=== PATIENT | male | born 1990 | race African-American/Black ===

== ENCOUNTER 2018-04-08 19:31 | Inpatient (IN) | payer OTHER ==
[2018-04-08] MEDS ORDERED: LORazepam 1 MG TAB PO STA (19:53)
--- NOTE | 2018-04-08 19:55 | ED ---
General Adult HPI - General Stated complaint: Mental Health Time Seen by Provider: 04/08/18 19:32 - Related Data Previous Rx's Medication Instructions Recorded risperiDONE [RisperDAL] 2 mg PO BID #60 tab 04/15/18 Allergies Allergy/AdvReac Type Severity Reaction Status Date / Time No Known Allergies Allergy Verified 04/09/18 15:13 Review of Systems ROS Statement: Those systems with pertinent positive or pertinent negative responses have been documented in the HPI. ROS Other: All systems not noted in ROS Statement are negative. Past Medical History Past Medical History: No Reported History History of Any Multi-Drug Resistant Organisms: None Reported Past Surgical History: No Surgical Hx Reported Past Psychological History: No Psychological Hx Reported Smoking Status: Never smoker Past Alcohol Use History: Occasional Past Drug Use History: None Reported - Past Family History Mother Additional Family Medical History / Comment(s): Mental Illness Father History Unknown: Yes Course Vital Signs 04/08/18 04/09/18 19:52 14:16 Temperature 98.1 F 98.1 F Pulse Rate 65 71 Respiratory 20 18 Rate Blood Pressure 98/46 135/73 O2 Sat by Pulse 97 98 Oximetry Medical Decision Making - Medical Decision Making Dictation was produced using [employer] dictation software. please excuse any grammatical, word or spelling errors. Chief Complaint: 27-year-old male past medical history of schizoaffective disorder presents with acute psychosis. History of Present Illness: This 19-year-old male presents with auditory and visual hallucinations. He states he is hearing voices telling him to end it all. Patient was also told his voices are telling him to kill himself. Patient has history of schizoaffective disorder. He takes olanzapine. Patient is a poor historian. He is brought by his sister worsened patient has been having acute psychotic episodes. The ROS documented in this emergency department record has been reviewed and confirmed by me. Those systems with pertinent positive or negative responses have been documented in the HPI. All other systems are other negative and/or noncontributory. PHYSICAL EXAM: General Impression: acute distress HEENT: Normocephalic atraumatic, extra-ocular movements intact, pupils equal and reactive to light bilaterally, mucous membranes moist. Cardiovascular: Heart regular rate and rhythm, S1&S2 audible, no murmurs, rubs or gallops Chest: Lungs clear to auscultation bilaterally, no rhonchi, no wheeze, no rales Abdomen: Bowel sounds present, abdomen soft, non-tender, non-distended, no organomegaly Musculoskeletal: Pulses present and equal in all extremities, no peripheral edema Motor: Power 5/5 bilaterally, no focal deficits noted Neurological: CN II-XII grossly intact, no focal motor or sensory deficits noted Skin: Intact with no visualized rashes Psych: Tearful, acutely psychotic, and cooperative, tangential speech ED course: 27 yo male presents with acute auditory hallucinations. Vital signs upon arrival are within normal limits. On physical exam patient showing signs of acute psychosis. Patient care is signed out to oncoming physician for follow -up of EPS with recommendations. - Lab Data Result diagrams: 04/08/18 20:17 04/08/18 20:17 Lab Results 04/08/18 04/08/18 04/08/18 Range/Units 20:17 20:17 20:17 WBC 6.3 (3.8-10.6) k/uL RBC 5.47 (4.30-5.90) m/uL Hgb 15.9 (13.0-17.5) gm/dL Hct 47.6 (39.0-53.0) % MCV 87.0 (80.0-100.0) fL MCH 29.1 (25.0-35.0) pg MCHC 33.4 (31.0-37.0) g/dL RDW 13.5 (11.5-15.5) % Plt Count 320 (150-450) k/uL Neutrophils % 63 % Lymphocytes % 28 % Monocytes % 6 % Eosinophils % 1 % Basophils % 0 % Neutrophils # 4.0 (1.3-7.7) k/uL Lymphocytes # 1.7 (1.0-4.8) k/uL Monocytes # 0.3 (0-1.0) k/uL Eosinophils # 0.1 (0-0.7) k/uL Basophils # 0.0 (0-0.2) k/uL Sodium 138 (137-145) mmol/L Potassium 3.9 (3.5-5.1) mmol/L Chloride 105 (98-107) mmol/L Carbon Dioxide 24 (22-30) mmol/L Anion Gap 9 mmol/L BUN 11 (9-20) mg/dL Creatinine 0.99 (0.66-1.25) mg/dL Est GFR (CKD-EPI)AfAm >90 (>60 ml/min/1.73 sqM) Est GFR (CKD-EPI)NonAf >90 (>60 ml/min/1.73 sqM) Glucose 94 (74-99) mg/dL Estimated Ave Glu mg/dL Hemoglobin A1c (4.0-6.0) % Calcium 10.0 (8.4-10.2) mg/dL Triglycerides (<150) mg/dL Cholesterol (<200) mg/dL LDL Cholesterol, Calc (0-99) mg/dL HDL Cholesterol (40-60) mg/dL TSH (0.465-4.680) mIU/L Urine Opiates Screen Not Detected (NotDetected) Ur Oxycodone Screen Not Detected (NotDetected) Urine Methadone Screen Not Detected (NotDetected) Ur Propoxyphene Screen Not Detected (NotDetected) Ur Barbiturates Screen Not Detected (NotDetected) U Tricyclic Antidepress Not Detected (NotDetected) Ur Phencyclidine Scrn Not Detected (NotDetected) Ur Amphetamines Screen Not Detected (NotDetected) U Methamphetamines Scrn Not Detected (NotDetected) U Benzodiazepines Scrn Not Detected (NotDetected) Urine Cocaine Screen Not Detected (NotDetected) U Marijuana (THC) Screen Detected H (NotDetected) Serum Alcohol <10 mg/dL 04/08/18 04/08/18 Range/Units 20:17 20:17 WBC (3.8-10.6) k/uL RBC (4.30-5.90) m/uL Hgb (13.0-17.5) gm/dL Hct (39.0-53.0) % MCV (80.0-100.0) fL MCH (25.0-35.0) pg MCHC (31.0-37.0) g/dL RDW (11.5-15.5) % Plt Count (150-450) k/uL Neutrophils % % Lymphocytes % % Monocytes % % Eosinophils % % Basophils % % Neutrophils # (1.3-7.7) k/uL Lymphocytes # (1.0-4.8) k/uL Monocytes # (0-1.0) k/uL Eosinophils # (0-0.7) k/uL Basophils # (0-0.2) k/uL Sodium (137-145) mmol/L Potassium (3.5-5.1) mmol/L Chloride (98-107) mmol/L Carbon Dioxide (22-30) mmol/L Anion Gap mmol/L BUN (9-20) mg/dL Creatinine (0.66-1.25) mg/dL Est GFR (CKD-EPI)AfAm (>60 ml/min/1.73 sqM) Est GFR (CKD-EPI)NonAf (>60 ml/min/1.73 sqM) Glucose (74-99) mg/dL Estimated Ave Glu mg/dL 108 Hemoglobin A1c 5.4 (4.0-6.0) % Calcium (8.4-10.2) mg/dL Triglycerides 106 (<150) mg/dL Cholesterol 194 (<200) mg/dL LDL Cholesterol, Calc 89 (0-99) mg/dL HDL Cholesterol 84 H (40-60) mg/dL TSH 1.950 (0.465-4.680) mIU/L Urine Opiates Screen (NotDetected) Ur Oxycodone Screen (NotDetected) Urine Methadone Screen (NotDetected) Ur Propoxyphene Screen (NotDetected) Ur Barbiturates Screen (NotDetected) U Tricyclic Antidepress (NotDetected) Ur Phencyclidine Scrn (NotDetected) Ur Amphetamines Screen (NotDetected) U Methamphetamines Scrn (NotDetected) U Benzodiazepines Scrn (NotDetected) Urine Cocaine Screen (NotDetected) U Marijuana (THC) Screen (NotDetected) Serum Alcohol mg/dL Disposition Clinical Impression: Psychosis Disposition: ADMITTED IP TO [facility] Condition: Stable Time of Disposition: 15:51 Decision Time: 15:51
[2018-04-08 20:34] LABS: Basophils % (A) 0 %; Eosinophils # (A) 0.1 k/uL (0-0.7); Eosinophils % (A) 1 %; HCT 47.6 % (39.0-53.0); HGB 15.9 gm/dL (13.0-17.5); Lymphocytes # (A) 1.7 k/uL (1.0-4.8); Lymphocytes % (A) 28 %; MCH 29.1 pg (25.0-35.0); MCHC 33.4 g/dL (31.0-37.0); Mean Platelet Volume 6.4; Monocytes # (A) 0.3 k/uL (0-1.0); Monocytes % (A) 6 %; Neutrophils % (A) 63 %; Platelet Count 320 k/uL (150-450); RBC 5.47 m/uL (4.30-5.90); RDW 13.5 % (11.5-15.5); WBC 6.3 k/uL (3.8-10.6)
[2018-04-08 20:44] LABS: Amphetamine Screen,Urine Not Detected (NotDetected); Barbiturate Screen,Urine Not Detected (NotDetected); Benzodiazepines Screen,Urine Not Detected (NotDetected); Cocaine Screen,Urine Not Detected (NotDetected); Methadone Screen, Urine Not Detected (NotDetected); Opiate Screen,Urine Not Detected (NotDetected); Oxycodone Screen, Urine Not Detected (NotDetected); Phencyclidine Screen,Urine Not Detected (NotDetected); Tricyclic Antidepressant,Urine Not Detected (NotDetected); Urn Cannabinoid Scrn Detected (NotDetected)
[2018-04-08 20:50] LABS: Potassium 3.9 mmol/L (3.5-5.1)
[2018-04-08 20:53] LABS: Alcohol <10 mg/dL; Anion Gap 9 mmol/L; Blood Urea Nitrogen 11 mg/dL (9-20); Carbon Dioxide 24 mmol/L (22-30); Chloride 105 mmol/L (98-107); Glucose 94 mg/dL (74-99); Sodium 138 mmol/L (137-145)
[2018-04-08] MEDS ORDERED: OLANZAPINE PO SCH (21:45)
[2018-04-08] MEDS ORDERED: OLANZapine 10 MG TAB PO STA (22:02)
[2018-04-09] MEDS ORDERED: MAGNESIUM HYDROXIDE 2,400 MG/10 ML CUP PO PRN (14:43)
[2018-04-09] MEDS ORDERED: LORazepam 1 MG TAB PO PRN (14:43)
[2018-04-09] MEDS ORDERED: ACETAMINOPHEN TAB 325 MG TAB PO PRN (14:43)
[2018-04-09] MEDS ORDERED: ZIPRASIDONE 20 MG VIAL IM PRN (14:43)
[2018-04-09] MEDS ORDERED: MAG HYDROX/AL HYDROX/SIMETH 30 ML CUP PO PRN (14:43)
[2018-04-09] MEDS ORDERED: LORazepam 2 MG/ML INJ IM PRN (15:01)
--- NOTE | 2018-04-09 17:32 | P.CONS ---
History of Present Illness - Reason for Consult Consult date: 04/09/18 - History of Present Illness Patient is a 27-year-old male with a past medical history of schizophrenia who presented to the ED for psychosis and was subsequently admitted to the mental health unit. The patient notes that he has been hearing voices all of his life but that recently he stopped taking his medications and that the voices came back. The patient also voices were telling him to harm himself. He otherwise denied having any medical conditions or any active complaints at this time. He denied chest pain, shortness of breath, cough, fever, or chills. He also denied abdominal pain, nausea, vomiting, dysuria, headaches, or dizziness. Review of Systems Pertinent positives and negatives as discussed in HPI, a complete review of systems was performed and all other systems are negative. Past Medical History Past Medical History: No Reported History History of Any Multi-Drug Resistant Organisms: None Reported Past Surgical History: No Surgical Hx Reported Past Anesthesia/Blood Transfusion Reactions: No Reported Reaction Past Psychological History: ADD/ADHD, Schizoaffective Disorder Additional Psychological History / Comment(s): dx'd last year with schizoaffective. Smoking Status: Never smoker Past Alcohol Use History: Occasional Past Drug Use History: None Reported - Past Family History Mother Additional Family Medical History / Comment(s): Mental Illness Father History Unknown: Yes Medications and Allergies Home Medications Medication Instructions Recorded Confirmed Type Olanzapine(Unknown Dose) 10 mg PO HS 04/08/18 04/09/18 History Allergies Allergy/AdvReac Type Severity Reaction Status Date / Time No Known Allergies Allergy Verified 04/09/18 15:13 Physical Exam Vitals: Vital Signs Temp Pulse Pulse Resp BP BP Pulse Ox 04/09/18 14:51 97.6 F 58 L 20 126/81 04/09/18 14:16 98.1 F 71 18 135/73 98 04/08/18 19:52 98.1 F 65 20 98/46 97 General: [non toxic], [no distress], [appears at stated age], [normal weight] Derm: [no unusual rashes/lesions] [no unusual ecchymoses], [warm], [dry] Head: [atraumatic], [normocephalic], [symmetric] Eyes: [EOMI], [no lid lag], [anicteric sclera], [pupils equal round reactive to light] ENT: [Nose and ears atraumatic], [no thrush], [no pharyngeal erythema] Neck: [No thyromegaly], [no cervical lymphadenopathy], [trachea midline], [ supple] Mouth: [no lip lesion], [mucus membranes moist] Cardiovascular: [S1S2 reg], [no murmur], [positive posterior tibial pulse bilateral], [no edema], [capillary refill less than 2 seconds] Lungs: [CTA bilateral], [no rhonchi, no rales] , [no accessory muscle use] Abdominal: [soft], [ nontender to palpation], [no guarding], [no appreciable organomegaly], [normal bowel sounds] Ext: [no gross muscle atrophy], [muscle strength 5 out of 5 in all 4 extremities grossly], [no contractures], Neuro: [ CN II-XI grossly intact], [light touch intact all 4 extremities], [ finger to nose within normal limits], Psych: [Alert], [oriented], [appropriate affect] Results CBC & Chem 7: 04/08/18 20:17 04/08/18 20:17 Labs: Abnormal Lab Results - Last 24 Hours (Table) 04/08/18 Range/Units 20:17 U Marijuana (THC) Screen Detected H (NotDetected) Assessment and Plan Plan: Marijuana abuse -Patient counseled on the importance of cessation -Patient denies any tobacco abuse -Patient also denied any additional IV drug use Psychosis -As per psychiatry Thank you for allowing us to participate in the care of this patient. We will follow peripherally. Do not hesitate to contact us with questions. Someone can be reached from the [facility] hospitalist group at all hours of the day at [phone].
[2018-04-10 10:41] VITALS: BMI 31.3
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
[2018-04-10] MEDS: risperiDONE 1 MG TAB PO SCH ×2 (12:57→20:27)
[2018-04-10 16:22] LABS: Hemoglobin A1C 5.4 % (4.0-6.0)
[2018-04-11] MEDS: risperiDONE 1 MG TAB PO SCH ×2 (08:22→21:35)
--- NOTE | 2018-04-11 08:57 | P.PN ---
Progress Note - Text Interval history: The patient is found in his room he follows me to an interview room. He states that he slept last night staff recorded he slept approximate 7 hours. Appetite stable. He intends on participating in groups today. He continues to experience troubling auditory hallucinations and visual hallucinations. He did speak with his mother and he was on Risperdal at age 15 and a very low dose. Neither of them recall an adverse reaction or side effects from the medication. He has several questions regarding his outpatient follow-up once discharged. Mental status exam: The patient is an -Niuean male appearing his stated age. He is dressed in the same clothing is yesterday. Hygiene is adequate. Eye contact is appropriate. He is pleasant and cooperative. He appears restless as he seated in the chair he states that's due to anxiety. He is currently experiencing auditory hallucinations telling him he is going to . He is reporting no suicidal or homicidal thoughts of his own. He is reminded that he is safe here in the hospital and he can speak with staff regarding any concerns. He demonstrates no verbal or physical aggressiveness. Plan: The patient is just been started on Risperdal we will titrate it as needed during the course of the hospitalization. He is encouraged to participate in the milieu. We will monitor him for safety. Vital signs reviewed. Lab work reviewed.
[2018-04-12] MEDS: risperiDONE 1 MG TAB PO SCH ×2 (08:18→20:20)
--- NOTE | 2018-04-12 09:10 | P.PN ---
Progress Note - Text Interval history: The patient is found in the hallway he follows me to an interview room. He indicates that the voices are somewhat quieter. He had some difficulty with him last evening but feels her better during the day so far today. He does continue to hear them making derogatory comments. He reports no visual hallucinations. He feels his anxiety is reduced with the reduction in the intensity of the auditory hallucinations. At length he describes his concern over possibly losing his girlfriend who resides in [place]. He had several questions about how to reside in [place] but still get his mental health care. Mental status exam: The patient is alert he is dressed in his own clothing hygiene grooming adequate. Speech is fluent spontaneous nonpressured. He indicates his mood is improved. He describes continued auditory hallucinations that are derogatory but not commanding today. No visual hallucinations. He reports feeling safe here in the hospital. He does not appear hypomanic or manic. As the session goes on he does appear to be more anxious. He demonstrates no involuntary repetitive movements. He demonstrates no verbal or physical aggressiveness. He is able to demonstrate an appropriate range of affect. He is pleasant and cooperative throughout the interaction. Plan: We will continue Risperdal is written we will consider titrating the dose further if needed. We will monitor him for safety and encourage continued participation in the milieu.
[2018-04-13] MEDS: risperiDONE 1 MG TAB PO SCH (08:58)
--- NOTE | 2018-04-13 12:47 | P.PN ---
Progress Note - Text Interval history: The patient is found in the hallway he follows me to an interview room. He indicates the voices are quieter they seem to be just as frequent however. He continues to feel that they are somewhat worse in the evening hours. They continue to be worse when he is alone. Sleep spent stable appetite stable. He continues to have concern that his girlfriend going to leave him. 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 We again reviewed the medication his questions were answered. Mental status exam: The patient is an alert -Cam[place] male appearing his stated age. He is dressed in his own clothing hygiene grooming are good. Eye contact is good speech is fluent. He is pleasant and cooperative during the duration of our interaction. He reports feeling safe here in the hospital he indicates having or auditory auditory hallucinations that are somewhat quieter since he's been here but still present at the same frequency. He reports no visual hallucinations here in the hospital. He is endorsing no specific delusions. Insight and judgment improving. Affect appropriately expressive. He demonstrates no verbal or physical aggressiveness he demonstrates no involuntary repetitive movements. Plan: The patient will continue on the Risperdal we will titrate the dose to 2 mg twice daily to further reduce his psychosis. We will continue monitoring him for safety he is encouraged to continue participating in the milieu.
[2018-04-13] MEDS: risperiDONE 2 MG TAB PO SCH (20:14)
[2018-04-14] MEDS: risperiDONE 2 MG TAB PO SCH ×2 (07:48→20:26)
--- NOTE | 2018-04-14 11:16 | P.PN ---
Progress Note - Text Interval history: The patient is found in the hallway he follows me to an interview room. He states that his mood is much improved. He feels that the Risperdal continues to attenuate his auditory hallucinations. He states he also had a very good visit with his biological mother over the weekend. His mother had lost all of her children due to her substance use and neglect. He had carried feelings of anger for years. He states he was able to verbalize to her that he forgives her and hopes that they can build a better relationship. He indicates that she was tearful and responsive. He asked several questions regarding his medication and his outpatient follow-up. He asked that I call his girlfriend to answer any question she had about his treatment. Mental status exam: The patient alert he is dressed in his own clothing hygiene grooming adequate. Eye contact is good speech is fluent spontaneous nonpressured. He indicates his mood is good affect is congruent. He reports that the hallucinations continue to get quieter they're noncommanding. He was able to sleep better last night as a result. He is reporting no suicidal or homicidal ideation intent or plan. He is reporting no visual hallucinations at this time. No specific delusions reported. He does not appear hypomanic or manic. He is oriented to person place and date. Plan: The patient's will continue on the Risperdal as ordered. He has demonstrated significant improvement so far. I will consider discharging him tomorrow if clinically appropriate. We will continue to encourage full participation in the milieu we will monitor him for safety.
[2018-04-15 06:29] VITALS: BP 98/56; PULSE 70; RESP 15; TEMP 97.7
[2018-04-15] MEDS: risperiDONE 2 MG TAB PO SCH (08:03)
--- NOTE | 2018-04-15 09:52 | P.DS ---
Providers Date of admission: 04/09/18 14:14 Expected date of discharge: 04/15/18 Attending physician: Doyle Sims Consults: 04/09/18 14:43 Consult Physician Routine Consulting Provider: Vanessa Boyd Consult Reason/Comments: H & P and medical care Do you want consulting provider notified?: Yes Primary care physician: Stated None - Discharge Diagnosis(es) (1) Schizoaffective disorder Current Visit: Yes Status: Acute Priority: High Hospital Course: Brief Summary of admission note: This patient is a 27-year-old -[place] male who was admitted to the mental health unit through the emergency room with acute suicidal ideation in the context of having acute symptoms of psychosis. The patient presented reporting auditory hallucinations that were derogatory in directing self-harm. He was experiencing a visual hallucination of the grim reaper that was causing him great fear. He had been off of psychotropic medication and has been using alcohol. For full details please refer to my psychiatric evaluation dated 04/10/2018. Summary of hospital course: The patient was admitted to the mental health unit voluntarily. We reviewed his presenting symptoms and treatment options. We had considered initiating [facility] but the patient is without insurance. Risperdal was started and titrated to 2 mg twice daily. The patient reported a progressive improvement of his symptoms during this hospitalization. He indicates that the volume frequency and nature of the hallucinations have improved. He is endorsing no command auditory hallucinations. He is reporting no thoughts of self-harm or harm to others. He has been appropriately attending groups and has been pleasant and cooperative throughout his stay. He is scheduled to participate in a support meeting involving his biological mother this morning prior to discharge. With his permission I did speak with his girlfriend who resides in [place]. Mental status exam: The patient is alert he is dressed in his own clothing eye contact is appropriate speech is fluent spontaneous nonpressured. He indicates his mood is good affect is euthymic. He denies having any suicidal or homicidal ideation intent or plan. He is reporting very quiet nonderogatory noncommanding auditory hallucinations. He is reporting no visual hallucinations. He is endorsing no specific delusions at this time. He demonstrates no verbal or physical aggressiveness he demonstrates no involuntary repetitive movements. Insight and judgment much improved. He is oriented to person place and date. He spontaneously describes future oriented thinking. Impressions 1. Schizoaffective disorder depressed type Plan: The patient will be discharged mental health unit today he will return residing with his adoptive family. [facility]. We discussed that it may be in his best interest [facility]. For now he will remain on Risperdal 2 mg twice daily. He is instructed to abstain from any use of alcohol marijuana or any illicit drugs. He is not interested in any inpatient chemical dependency treatment. We discussed the use of these substances can worsen his symptoms of psychosis and elevate his safety risk. He is instructed to return to the hospital with any acute safety concerns. Patient Condition at Discharge: Stable Plan - Discharge Summary Discharge Rx Participant: No New Discharge Prescriptions: New risperiDONE [RisperDAL] 2 mg PO BID #60 tab Discontinued Olanzapine(Unknown Dose) 10 mg PO HS Discharge Medication List risperiDONE [RisperDAL] 2 mg PO BID #60 tab 04/15/18 [Rx] Follow up Appointment(s)/Referral(s): [facility] [NON-STAFF] - 1 Week Activity/Diet/Wound Care/Special Instructions: Keep your follow up appointments as scheduled. Continue medications as prescribed. Contact your medical care doctor or out patient psychiatrist for medication refills when needed. No alcohol or street drugs. No access to guns or weapons. If symptoms return or get worse contact the crisis line at [phone] or go to nearest emergency room for evaluation.
== END 2018-04-15 11:55 | disposition home or self-care (01) | DRG 885 ==
LOC: EC 19:31 → 3MHU 04-09 14:14
PROVIDERS: ADMIT Psychiatry & Neurology Psychiatry; ATTEND Psychiatry & Neurology Psychiatry
DX: F25.1 Schizoaffective disorder, depressive type (principal); R45.851 Suicidal ideations; F41.9 Anxiety disorder, unspecified; F81.9 Developmental disorder of scholastic skills, unspecified; F90.9 Attention-deficit hyperactivity disorder, unspecified type; Z62.810 Personal history of physical and sexual abuse in childhood; F10.10 Alcohol abuse, uncomplicated; Z71.51 Drug abuse counseling and surveillance of drug abuser; F12.10 Cannabis abuse, uncomplicated; Z79.899 Other long term (current) drug therapy
CPT/HCPCS: 36415; 80048; 80061; 80306; 80320; 82075; 83036; 84443; 85025; 99285

== ENCOUNTER 2018-08-01 14:45 | Inpatient (IN) | payer MEDICAID, OTHER ==
--- NOTE | 2018-08-01 15:11 | ED ---
General Adult HPI - General Chief complaint: Psychiatric Symptoms Stated complaint: Petition Time Seen by Provider: 08/01/18 14:52 Source: patient, police Mode of arrival: ambulatory Limitations: no limitations - History of Present Illness Initial comments: Dictation was produced using [employer] dictation software. please excuse any gramm atical, word or spelling errors. Chief Complaint: 28-year-old male with past medical history of schizophrenia presents by law enforcement for hallucinations. History of Present Illness: Patient is a 28-year-old male. He has past medical history of schizophrenia. Patient was last seen here in emergency department on September 06. He was evaluated by myself. At that time he presented with his family member for auditory and visual hallucinations. He was admitted to the hospital at that time. He presents today with law enforcement. Law enforcement reports that he was arrested yesterday. Patient was having symptoms of acute psychosis per law enforcement. He allegedly takes medications and has not been taking them. Patient uncooperative and unwilling to provide history of present illness Unable to obtain ROS secondary to mental status. PHYSICAL EXAM: General Impression: not in acute distress HEENT: Normocephalic atraumatic, extra-ocular movements intact, pupils equal and reactive to light bilaterally, mucous membranes moist. Cardiovascular: Heart regular rate and rhythm, S1&S2 audible, no murmurs, rubs or gallops Chest: Lungs clear to auscultation bilaterally, no rhonchi, no wheeze, no rales Abdomen: Bowel sounds present, abdomen soft, non-tender, non-distended, no organomegaly Musculoskeletal: Pulses present and equal in all extremities, no peripheral edema Motor: no focal deficits noted Neurological: CN II-XII grossly intact, no focal motor or sensory deficits noted Skin: Intact with no visualized rashes Psych: Flat affect ED course: 28-year-old male presents with clinical presentation consistent with acute psychosis. He has a past medical history of schizophrenia. Cranial enforcement he is noncompliant with his psychiatric medications. Signs upon arrival are within acceptable limits. Patient displaying active signs of acute psychosis at this time.Laboratory evaluation obtained. CBC C unremarkable. Sodium 151, potassium 5.3 serum alcohol negative. Pending urine drug screen. Point patient mildly dehydrated. Patient given intravenous fluids. After fluids patient can be dispositioned to inpatient psychiatry previous recommendations. - Related Data Home Medications Medication Instructions Recorded Confirmed Benztropine Mesylate [Cogentin] 1 mg PO BID PRN 08/01/18 08/01/18 Cholecalciferol (Vitamin D3) 5,000 unit PO DAILY 08/01/18 08/01/18 [Vitamin D3] risperiDONE [RisperDAL] 4 mg PO HS 08/01/18 08/01/18 Allergies Allergy/AdvReac Type Severity Reaction Status Date / Time No Known Allergies Allergy Verified 08/01/18 15:59 Review of Systems ROS Statement: Those systems with pertinent positive or pertinent negative responses have been documented in the HPI. ROS Other: All systems not noted in ROS Statement are negative. Past Medical History Past Medical History: No Reported History History of Any Multi-Drug Resistant Organisms: None Reported Past Surgical History: No Surgical Hx Reported Past Anesthesia/Blood Transfusion Reactions: No Reported Reaction Past Psychological History: No Psychological Hx Reported Smoking Status: Never smoker Past Alcohol Use History: Occasional Past Drug Use History: None Reported - Past Family History Mother Additional Family Medical History / Comment(s): Mental Illness Father History Unknown: Yes General Exam Limitations: no limitations Course Vital Signs 08/01/18 14:47 Pulse Rate 79 Respiratory 18 Rate Blood Pressure 140/74 Medical Decision Making - Lab Data Result diagrams: 08/01/18 15:40 08/01/18 15:40 Lab Results 08/01/18 08/01/18 Range/Units 15:40 15:40 WBC 10.0 (3.8-10.6) k/uL RBC 5.51 (4.30-5.90) m/uL Hgb 15.4 (13.0-17.5) gm/dL Hct 48.9 (39.0-53.0) % MCV 88.9 (80.0-100.0) fL MCH 28.0 (25.0-35.0) pg MCHC 31.5 (31.0-37.0) g/dL RDW 14.2 (11.5-15.5) % Plt Count 268 (150-450) k/uL Neutrophils % 71 % Lymphocytes % 21 % Monocytes % 6 % Eosinophils % 0 % Basophils % 0 % Neutrophils # 7.1 (1.3-7.7) k/uL Lymphocytes # 2.1 (1.0-4.8) k/uL Monocytes # 0.6 (0-1.0) k/uL Eosinophils # 0.0 (0-0.7) k/uL Basophils # 0.0 (0-0.2) k/uL Sodium 151 H (137-145) mmol/L Potassium 5.3 H (3.5-5.1) mmol/L Chloride 111 H (98-107) mmol/L Carbon Dioxide 26 (22-30) mmol/L Anion Gap 14 mmol/L BUN 11 (9-20) mg/dL Creatinine 1.17 (0.66-1.25) mg/dL Est GFR (CKD-EPI)AfAm >90 (>60 ml/min/1.73 sqM) Est GFR (CKD-EPI)NonAf 84 (>60 ml/min/1.73 sqM) Glucose 98 (74-99) mg/dL Calcium 11.1 H (8.4-10.2) mg/dL Serum Alcohol <10 mg/dL Disposition Clinical Impression: Acute psychosis Disposition: ADMITTED IP TO THIS [facility] Condition: Fair Referrals: None,Stated [Primary Care Provider] - 1-2 days Decision Time: 16:39
[2018-08-01 15:49] LABS: Basophils % (A) 0 %; Eosinophils % (A) 0 %; HCT 48.9 % (39.0-53.0); HGB 15.4 gm/dL (13.0-17.5); Lymphocytes # (A) 2.1 k/uL (1.0-4.8); Lymphocytes % (A) 21 %; MCHC 31.5 g/dL (31.0-37.0); MCV 88.9 fL (80.0-100.0); Mean Platelet Volume 6.9; Monocytes # (A) 0.6 k/uL (0-1.0); Monocytes % (A) 6 %; Neutrophils # (A) 7.1 k/uL (1.3-7.7); Neutrophils % (A) 71 %; Platelet Count 268 k/uL (150-450); RBC 5.51 m/uL (4.30-5.90); RDW 14.2 % (11.5-15.5)
[2018-08-01 15:58] LABS: Alcohol <10 mg/dL; Anion Gap 14 mmol/L; Blood Urea Nitrogen 11 mg/dL (9-20); Calcium 11.1 mg/dL (8.4-10.2); Carbon Dioxide 26 mmol/L (22-30); Chloride 111 mmol/L (98-107); Glucose 98 mg/dL (74-99); Potassium 5.3 mmol/L (3.5-5.1); Sodium 151 mmol/L (137-145)
[2018-08-01] MEDS ORDERED: SODIUM CHLORIDE 0.9% 1,000 ML IV STA (16:31)
[2018-08-01] MEDS ORDERED: BENZTROPINE MESYLATE 1 MG TAB PO PRN ×2 (16:34→19:25)
[2018-08-01] MEDS ORDERED: ZIPRASIDONE 20 MG VIAL IM STA (16:34)
[2018-08-01] MEDS ORDERED: LORazepam 2 MG/ML INJ IV STA (17:09)
[2018-08-01] MEDS ORDERED: MAGNESIUM HYDROXIDE 2,400 MG/10 ML CUP PO PRN (19:18)
[2018-08-01] MEDS ORDERED: ACETAMINOPHEN TAB 325 MG TAB PO PRN (19:18)
[2018-08-01] MEDS ORDERED: MAG HYDROX/AL HYDROX/SIMETH 30 ML CUP PO PRN (19:18)
[2018-08-01] MEDS ORDERED: ZIPRASIDONE 20 MG VIAL IM PRN (19:18)
[2018-08-01] MEDS ORDERED: LORazepam 1 MG TAB PO PRN (19:18)
[2018-08-01] MEDS: risperiDONE 2 MG TAB PO SCH (20:04)
[2018-08-01] MEDS ORDERED: risperiDONE 2 MG TAB PO SCH (21:00)
[2018-08-02 04:58] VITALS: BMI 29.7
--- NOTE | 2018-08-02 07:14 | P.MDCNMH ---
History of Present Illness H&P Date: 08/02/18 Chief Complaint: Inappropriate behavior, auditory and visual hallucinations 28-year-old male with history of schizophrenia Patient was brought in by law enforcement he resisted arrest, he was having abnormal behavior along with a tree and visual hallucinations with paranoid ideation. He denies any past medical history. He is not compliant with his mental health medications he thought he was doing better and he stopped them. He is voicing paranoid ideations. He denies any suicidal or homicidal ideation at this time. He denies any fevers chills chest pain or trouble breathing he denies any nausea vomiting abdominal pain or changes in his bowel or urinary habits. He denies any focal neuro deficits Review of Systems Pertinent positives as noted in HPI. All other systems were reviewed and are negative Past Medical History Past Medical History: No Reported History History of Any Multi-Drug Resistant Organisms: None Reported Past Surgical History: No Surgical Hx Reported Past Anesthesia/Blood Transfusion Reactions: No Reported Reaction Smoking Status: Never smoker - Past Family History Mother Additional Family Medical History / Comment(s): Mental Illness Father History Unknown: Yes Medications and Allergies Home Medications Medication Instructions Recorded Confirmed Type Benztropine Mesylate [Cogentin] 1 mg PO BID PRN 08/01/18 08/02/18 History Cholecalciferol (Vitamin D3) 5,000 unit PO DAILY 08/01/18 08/02/18 History [Vitamin D3] risperiDONE [RisperDAL] 4 mg PO HS 08/01/18 08/02/18 History Allergies Allergy/AdvReac Type Severity Reaction Status Date / Time No Known Allergies Allergy Verified 08/01/18 15:59 Physical Exam Vitals: Vital Signs Temp Pulse Pulse Resp BP BP Pulse Ox 08/02/18 06:27 97.9 F 55 L 16 123/63 08/02/18 04:45 97.6 F 91 16 125/75 99 08/01/18 20:31 97.6 F 91 16 125/75 99 08/01/18 19:00 98.1 F 73 17 138/93 99 08/01/18 14:47 79 18 140/74 Intake and Output 08/01/18 08/02/18 08/02/18 22:59 06:59 14:59 Other: Weight 91.3 kg Constitutional: No acute distress, conversant, pleasant Eyes: Anicteric sclerae, moist conjunctiva, no lid-lag Pupils equal round reactive to light ENMT: NC/AT Oropharynx clear, no erythema, exudates Neck: Supple, FROM, no masses, or JVD No carotid bruits No thyromegaly Lungs: Clear to auscultation Clear to percussion Normal respiratory effort, no accessory muscle use Cardiovascular: Heart regular in rate and rhythm, No murmurs, gallops, or rubs No peripheral edema Abdominal: Soft Nontender, no guarding, rebound or rigidity Abdomen moving with respiration Normoactive bowel sounds No hepatomegaly, No splenomegaly No palpable mass No abdominal wall hernia noted Skin: Normal temperature, tone, texture, turgor No induration No subcutaneous nodules No rash, lesions No ulcers Extremities: No digital cyanosis No clubbing Pedal pulses intact and symmetrical Radial pulses intact and symmetrical No calf tenderness Psychiatric: Alert and oriented to person, place and time Depressed affect Poor judgement Neuro Muscles Strength 5/5 in all 4 extremities Sensation to light touch grossly present throughout Cranial nerves II-XII grossly intact No focal sensory deficits Lymphatics: no palpable cervical or supraclavicular , or inguinal lymph nodes Cranial Nerve Examination - Cranial Nerves Cranial Nerve II- Optic: Intact Cranial Nerve III- Oculomotor: Intact Cranial Nerve IV- Trochlear: Intact Cranial Nerve V- Trigeminal: Intact Cranial Nerve - Abducens: Intact Cranial Nerve VII- Facial: Intact Cranial Nerve VIII- Auditory: Intact Cranial Nerve IX- Glossopharyngeal: Intact Cranial Nerve X- Vagus: Intact Cranial Nerve XI- Accessory: Intact Cranial Nerve XII- Hypoglossal: Intact Results CBC & Chem 7: 08/01/18 15:40 08/01/18 15:40 Labs: Abnormal Lab Results - Last 24 Hours (Table) 08/01/18 Range/Units 15:40 Sodium 151 H (137-145) mmol/L Potassium 5.3 H (3.5-5.1) mmol/L Chloride 111 H (98-107) mmol/L Calcium 11.1 H (8.4-10.2) mg/dL Assessment and Plan Assessment: 28-year-old male with no significant past medical history patient has history of schizophrenia as was brought to the hospital due to a tree and visual hallucinations and aggressive behavior Plan: Acute psychosis and aggressive behavior Other treated and visual hallucinations Management per psych Polysubstance abuse Patient counseled to quit drug of abuse Patient low risk for DVT and ambulatory Follow-up labs and urine drug screen Thank you for allowing us to participate in the care of this patient. We will follow peripherally. Do not hesitate to contact us with questions. Someone can be reached from the [facility] hospitalist group at all hours of the day at [phone].
[2018-08-02] MEDS: CHOLECALCIFEROL 1,000 UNIT TAB PO SCH (08:01)
[2018-08-02] MEDS ORDERED: CHOLECALCIFEROL 1,000 UNIT TAB PO SCH (09:00)
[2018-08-02] MEDS: ARIPiprazole 10 MG TAB PO SCH ×2 (15:24→22:07)
[2018-08-02] MEDS: risperiDONE 2 MG TAB PO SCH (22:07)
--- NOTE | 2018-08-03 02:48 | HP ---
DATE OF SERVICE : 08/02/2018 HISTORY AND PHYSICAL IDENTIFYING DATA: Patient is a 28-year-old. He lives with his mother and brother. He was brought to the hospital by police. Apparently he had been arrested for resisting police. CHIEF COMPLAINT : He was paranoid and had disorganized behavior. HISTORY OF PRESENT ILLNESS: The patient has a long history of psychiatric illness. He has had the diagnosis of schizophrenia. Current situation is that recently he was having increased problems with hallucinations. He had a psychiatric hospitalization April 10, 2018. He was seen by Dr. Sims, and was admitted due to auditory hallucinations, depression, and suicide thinking. He was diagnosed with Schizophrenia and discharged on Risperdal 2 mg twice a day. He said Risperdal was helping him with his thought disorder. Voices were quieter. He had followup through [facility]. He said he was doing fairly well. In June, he went off of medications because he thought he was doing better and did not need medications. He was seeing a counselor, Tricia at [facility]. He felt she was helpful and he continued to see her into July. He missed his last appointment 2 weeks ago because he was having trouble keeping track of time. He notes that over the last several weeks he started having more and more problems with voices and delusional thoughts. He became paranoid. His immediate situation was that on Saturday he said he took some street drugs. He believed he did acid. He was in an intoxicated state in the night of Saturday. He said he had continued to be intoxicated from the drugs. He was uncertain about details, though knows the police came to the house where he was at. He says he understood he was resisting responding to police and got into a scuffle with police which resulted in his being arrested. He spent night in alf. He continued in on Saturday. He was noted to be exhibiting bazaar behavior in alf. He was observed as pacing. He would stare in one place for a period of time. He made odd comments. He made odd comments. He was brought to the emergency room by the police. When I talked to the patient he spoke at length about how people had conspired against him. He believed that the police created the situation where he landed in alf. He said he watched people talking together and knew that they were talking about him and plotting against him. He believes that the same thing happen that police and hospital as well were also plotting against him. He has been sleeping poorly. He had been working at a [employer], though missed his work shift on Saturday. He said that he had been doing well at his job and he enjoyed it very much. States he is worried that he may be fired because of missing his job. He notes that he has had long-term problems with both difficulties with his thought disorder as well as problems with function. He notes that about a year ago he moved to [place]. He and a cousin had a plan for some business. He said ultimately the cousin took all his money and he was left homeless. He was able to make connections with some people and had a place to live temporarily. He was having problems with depression and at one point ran out into traffic because voices were telling him to do so to kill himself. Apparently at that time he was hospitalized. This would have occurred sometime last spring or summer. He got started on Zyprexa which he took for about 6 months. He said he gained a lot of weight and in about January he stopped the Zyprexa because of that. More recently he has been having voices with statements telling him to kill himself. He notes a family history of psychiatric and substance abuse issues. He said his mother was on crack and that he was a "crack baby." He made some suggestions that he has posttraumatic symptoms. He has anxiety. He is currently not on any psychotropic medications. He is admitted for further evaluation. SUBSTANCE USE HISTORY: As above. The patient has had some use of marijuana. He said that he drinks occasionally with his last drink being about 1 week ago. He said the amount that he typically would drink at one time would be "a couple shots." PAST MEDICAL HISTORY AND REVIEW OF SYSTEMS: As per medical consultation with Dr. Michelle. FAMILY AND SOCIAL HISTORY: The only information I have is noted above in the HPI. He currently lives with his brother. He has been working in a [employer] which he likes very much. MENTAL STATUS: Patient gave fair eye contact. He answered questions appropriately. His thoughts were clear and coherent. He was spontaneous and interactive. Often he would veer off and become tangential. He made various paranoid statements throughout the interview. As the interview progressed he stood up and started pacing back and forth in the room as he talked. Sometimes he would ramble. His affect was intense, his mood depressed. He was significantly distressed. He had persistent thoughts of paranoia with ideas of reference. He did show clear response to internal stimuli. On cognitive exam, he appeared oriented and alert. He was able to give history of recent and some remote events that were fairly accurate by the medical record. He did make an effort to answer formal cognitive questions. PHYSICAL EXAM: As per Dr. Michelle. ASSESSMENT: This 28-year-old male is diagnosed with schizophrenia with acute exacerbation. He may have some issues of drug use that could amplified his psychosis. Supporting information is not available to be able to verify what the patient is relating regarding substance abuse. Court issues are uncertain. A strength is his having a positive job situation. Weakness is his schizophrenia. RECOMMENDATIONS: The patient is admitted for a comprehensive medical, psychiatric and psychosocial evaluation. We will engage the patient in individual and group therapeutic activities. I had an extensive discussion with the patient regarding his psychiatric issues. He was willing to start Abilify. I will initiate Abilify 10 mg twice a day. He also will be started on Cogentin 1 mg twice a day p.r.n. Abilify may need to be titrated to higher doses. I reviewed issues about the option that he might get on Abilify Maintena as a potentially good option for medication compliance. The patient was willing to consider that. We will coordinate with [facility] for followup care. We will focus on stabilization and discharge planning. GREGORIO / DAE: [id number] / Kye#: [id number] OMAIRA
[2018-08-03 08:05] LABS: ALT 36 U/L (21-72); AST 80 U/L (17-59); Albumin 4.2 g/dL (3.5-5.0); Alkaline Phosphatase 52 U/L (38-126); Anion Gap 4 mmol/L; Blood Urea Nitrogen 14 mg/dL (9-20); Calcium 9.3 mg/dL (8.4-10.2); Carbon Dioxide 29 mmol/L (22-30); Chloride 107 mmol/L (98-107); Cholesterol 141 mg/dL (<200); Glucose 80 mg/dL (74-99); HDL Cholesterol 64 mg/dL (40-60); LDL Cholesterol,Calculated 65 mg/dL (0-99); Potassium 4.4 mmol/L (3.5-5.1); Sodium 140 mmol/L (137-145); Total Bilirubin 0.6 mg/dL (0.2-1.3); Total Protein 6.7 g/dL (6.3-8.2); Triglycerides 58 mg/dL (<150)
[2018-08-03] MEDS: CHOLECALCIFEROL 1,000 UNIT TAB PO SCH (10:22)
[2018-08-03] MEDS: ARIPiprazole 10 MG TAB PO SCH ×2 (10:23→22:31)
--- NOTE | 2018-08-03 21:52 | PN ---
PROGRESS NOTE DATE OF SERVICE: 08/03/2018. CHIEF COMPLAINT: He was paranoid and had disorganized behavior. INTERVAL HISTORY: Patient has been doing fairly well. He had a quiet evening last night. He would socialize with others. He chose not to attend groups last night. He slept fairly well and said that he has been sleeping better than he has in a long time. Today, he has been out. He comes out in the day area. He has been more interactive with others. His mood is improving. He has attended all groups today and it is noted that he seems to make a good effort in groups. In one group, the following was documented, "the patient demonstrated increased insight AEBL initiating to headline writer "I was doing well, got a job and a car. Then I stopped taking my medications because I was feeling so well." Patient identified not taking his medication as a mistake." The patient has been out quite a bit today. He socializes with others. It is noted that I met with the patient in the evening with his 2 sisters. The sisters noted that he has been doing better today and seems to have a much better outlook than he had yesterday. The sisters did share that they were very concerned that his main problem is that he goes off medications and then declines. I reviewed with the patient the issues regarding his petition for involuntary hospitalization. I discussed treatment options. The patient stated that he was quite motivated to follow through with treatment and continue on the medications. We discussed the option of a long-acting injectable in place of oral Abilify. He thought that would be a good option for him. He tolerates his psychotropic medications. MENTAL STATUS: Patient gave good eye contact. He was a little restless. He answered questions appropriately. His thoughts were clear. He was spontaneous and interactive. His affect was in a good range. He smiled some. His mood was even. He was somewhat restless and perhaps a little anxious, though did not appear to be significantly distressed. ASSESSMENT: I will continue the current diagnosis and treatment plan. The patient has been showing progress. He tolerates his psychotropic medications. He expresses willingness to get followup and was comfortable with the process that presents him in regards to the petition for involuntary treatment. We will consider initiating him on Abilify Maintena. We will focus on stabilization and discharge planning. MMODL / IJN: [id number] /
[2018-08-04 07:30] LABS: Appearance,Urine Clear (Clear); Bilirubin,Urine Negative (Negative); Blood,Urine Trace (Negative); Color,Urine Yellow; Glucose,Urine (UA) Negative (Negative); Ketones,Urine Trace (Negative); Leukocyte Esterase,Urine Negative (Negative); Mucus,Urine Many /hpf; Nitrite,Urine Negative (Negative); Protein,Urine Trace (Negative); RBC,Urine 1 /hpf (0-5); Specific Gravity,Urine 1.033 (1.001-1.035); Squamous Epithelial Cell,Urine <1 /hpf (0-4); WBC,Urine 1 /hpf (0-5)
[2018-08-04] MEDS: CHOLECALCIFEROL 1,000 UNIT TAB PO SCH (09:36)
[2018-08-04] MEDS: ARIPiprazole 10 MG TAB PO SCH ×2 (09:36→19:38)
--- NOTE | 2018-08-04 13:05 | PN ---
PROGRESS NOTE DATE OF SERVICE: 08/04/2018. CHIEF COMPLAINT: He was paranoid and had disorganized behavior. INTERVAL HISTORY: Patient has been doing well. He had a quiet evening last night. He interacts appropriately with others. He notes that his mood is improving. He slept well last night. Today he has been up. He comes out in the day area. It is noted that he has not had any muscle affects from Abilify. He has not noted any tremor, rigidity, or signs of akathesia. The patient states that the Abilify seems to help his thinking be very calm and focused. He feels very positive about the benefits of Abilify. His only concern is what he will be facing as far as the legal issues with his arrest. He said he had a very positive visit with his sisters yesterday and he is in agreement with the idea of being on Abilify Maintena. When I asked the patient about how he feels his thoughts are and whether he is continuing to have any paranoid thoughts, he said that for the most part, he feels that he is clearing, though he still has some worries and suspicions. He does seem to direct most of those thoughts towards the issues with the police that as opposed to his having clearly psychotic and paranoid thinking. He tolerates his psychotropic medication well. He has not used any Cogentin or p.r.n. Ativan. MENTAL STATUS: Patient sat without restlessness. He gave good eye contact. Psychomotor activity and speech were normal. His thoughts were clear. His affect was in a good range. He smiled. He was friendly. His mood was even. He did not appear to be distressed. There was no indication of thought disorder. The patient cognition was clear. RECOMMENDATIONS: We will continue the current diagnosis and treatment plan. I reviewed issues related to Abilify Maintena. I discussed with the patient that tomorrow Social Work can talk with him about discharge planning issues, which includes what steps may need to be in place for addressing his legal problems. Also, he is likely to see the court appointed assistant prosecuting attorney either tomorrow or Saturday in regards to the petition. I suggested that he talk to that assistant prosecuting attorney as well about the issues with his arrest. The patient anticipates that he would sign a deferral. I indicated that it is most likely that he could get started on Abilify Maintena though it would make sense to wait until he has in fact signed the deferral to proceed with further treatment and discharge planning. GREGORIO / DAE: [id number] / OMAIRA
[2018-08-05] MEDS: ARIPiprazole 10 MG TAB PO SCH ×2 (09:32→20:06)
[2018-08-05] MEDS: CHOLECALCIFEROL 1,000 UNIT TAB PO SCH (09:32)
[2018-08-05 10:27] LABS: Hemoglobin A1C 5.4 % (4.0-6.0)
[2018-08-05 12:09] LABS: Urine Alcohol Negative (Negative); Urine Barbiturate Negative (Negative); Urine Cocaine Negative (Negative); Urine Methadone Negative (Negative); Urine Opiates Negative (Negative); Urine Phencyclidine Negative (Negative)
--- NOTE | 2018-08-05 13:25 | P.PN ---
Progress Note - Text Progress Note Date: 08/05/18 08/05/2018: Chart reviewed and discussed in team this morning. Reviewed her case identifying data: Patient 28-year-old. He lives with his mother and brother. He was brought to the hospital by police. Apparently he had been arrested for resisting arrest. Chief complaint: He was paranoid and disorganized behavior. History of present illness: Patient has a long history of psychiatric illness. He has been diagnosed with schizophrenia. He has had psychiatric hospitalizations in April 10 2018. He was seen by Dr. Velásquez at that time. He was admitted due to auditory hallucinations depression and suicidal thinking. He was diagnosed with schizophrenia and discharged on Risperdal 2 mg twice a day. In June he went off his medications because he thought he was doing better and did not need his medication. He was seeing a counselor. [facility]. He felt she was helpful and he continued to see her in to July 2018. He missed his last 2 ointments 3 weeks ago. Saturday of last week 07/30/[address] which made his problems worse. He is unsure of exact details but knows that the place called his house and resisted arrest and ended up in [facility]. From there he was referred from [facility] to [facility] because he was exhibiting bizarre behavior in [facility]. He observed as pacing. He would stare one place for a period of time. That was very uncomfortable to the police officers. Mental status examination: This is a 28-year-old male who is admitted with diagnosis of acute exacerbation of schizophrenia. He has disorganized thinking but has become more lucid and redirectable on the unit. He is able to set and talk calmly during his interview. His affect was in full range. He was able to show brighter affect. He was friendly and talkative. His mood was now euthymic. Did not appear to be responding to internal stimuli. Denies any suicidal or homicidal ideation. Denies any auditory or visual hallucinations. Plan: We'll continue the current treatment and remain on 15 minute checks for safety as usual per protocol for the [address] [place] [address]. He remains on Abilify 15 mg by mouth twice a day and will be considered for transition to Abilify long acting injectable. Consideration for deferral is had current being formulated
[2018-08-06 06:22] VITALS: BP 119/60; PULSE 58; RESP 18; TEMP 97.6
[2018-08-06] MEDS: ARIPiprazole 10 MG TAB PO SCH (08:24)
[2018-08-06] MEDS: CHOLECALCIFEROL 1,000 UNIT TAB PO SCH (08:24)
--- NOTE | 2018-08-06 11:32 | P.DS ---
Providers Date of admission: 08/01/18 17:34 Expected date of discharge: 08/06/18 Attending physician: Doyle Sims Consults: 08/01/18 19:18 Consult Physician Routine Consulting Provider: Vanessa Boyd Consult Reason/Comments: H&P for mental health admission Do you want consulting provider notified?: Already Contacted Primary care physician: Stated None - Discharge Diagnosis(es) (1) Schizoaffective disorder Current Visit: No Status: Acute Priority: High Hospital Course: Brief summary of admission note: This patient is a 28-year-old -[place] male who was admitted to the mental health unit with acute symptoms of psychosis. He was brought in by the police and has been charged with resisting and obstructing. He is known to me from a previous admission. He states that prior to his arrest he had gone off of his medications for approximately 2 weeks. He had used acid and with those 2 combined factors he became acutely psychotic. He was initially evaluated by Dr. Willis, please refer to his psychiatric evaluation on 08/02/2018 for full detail. Summary of hospital course: The patient was admitted to the mental health unit he is here voluntarily. He was placed on Abilify and the dosage was titrated. The patient's symptoms of psychosis have resolved. I am assuming care of the patient starting today. I am familiar with his baseline function he appears to of approximated that at this time. He has been seen by internal medicine for routine history and physical exam. He is amenable to receiving the Abilify maintena injection to ensure medication compliance. For full detail of hospital course please refer to progress notes. Mental status exam: The patient is an -[place] male appearing his stated age. He is dressed in hospital gowns. He is pleasant and cooperative he is easily directed in the session. He reports his mood is much better. He denies having any suicidal or homicidal ideation intent or plan. His affect is bright and appears euthymic. He is endorsing no auditory or visual hallucinations, specifically no command auditory hallucinations. He endorses no delusional thoughts. He demonstrates no verbal or physical aggressiveness. He demonstrates no involuntary repetitive movements. Insight and judgment have improved. He is oriented to person place and date. Impressions 1. Schizoaffective disorder, bipolar type Plan: The patient will be discharged mental health unit today. He will return to the half-way. He will continue on Abilify 15 mg daily for 14 days then discontinue the oral dose. He will be given his first injection of Abilify maintena 400 mg today. The next dose will be due 09/03/2018. At length we discussed the importance of him abstaining from alcohol marijuana or any illicit drugs. He does not feel he needs to attend inpatient chemical dependency treatment to abstain from those substances. He will continue following with [facility]. At this time there is no imminent safety risk is appropriate for transition back to outpatient care. He is instructed to return to the hospital with any acute safety concerns. Patient Condition at Discharge: Stable Plan - Discharge Summary Discharge Rx Participant: No New Discharge Prescriptions: New ARIPiprazole [Abilify] 15 mg PO DAILY #14 tab ARIPiprazole IM SYRINGE [Abilify Maintena Syringe] 400 mg IM ONCE #1 syringe Continue Cholecalciferol (Vitamin D3) [Vitamin D3] 5,000 unit PO DAILY Discontinued risperiDONE [RisperDAL] 4 mg PO HS Benztropine Mesylate [Cogentin] 1 mg PO BID PRN PRN Reason: aggitation Discharge Medication List Cholecalciferol (Vitamin D3) [Vitamin D3] 5,000 unit PO DAILY 08/01/18 [History] ARIPiprazole IM SYRINGE [Abilify Maintena Syringe] 400 mg IM ONCE #1 syringe 08/06/18 [Rx] ARIPiprazole [Abilify] 15 mg PO DAILY #14 tab 08/06/18 [Rx] Follow up Appointment(s)/Referral(s): None,Stated [Primary Care Provider] - 1-2 days
[2018-08-06] MEDS ORDERED: ARIPiprazole IM SYRINGE 400 MG (NO CHARGE) IM ONE (12:00)
[2018-08-06] MEDS ORDERED: ARIPiprazole IM 400 MG VIAL (NO COST) IM ONE (12:00)
[2018-08-07] MEDS ORDERED: ARIPiprazole 15 MG TAB PO SCH (09:00)
== END 2018-08-06 15:06 | DRG 885 ==
LOC: EC 14:45 → 3MHU 17:34
PROVIDERS: ADMIT Psychiatry & Neurology Psychiatry; ATTEND Psychiatry & Neurology Psychiatry
DX: F25.0 Schizoaffective disorder, bipolar type (principal); R45.851 Suicidal ideations; E86.0 Dehydration; F41.9 Anxiety disorder, unspecified; Z59.0 Homelessness; Z79.899 Other long term (current) drug therapy; Z91.14 Patient's other noncompliance with medication regimen; Z81.8 Family history of other mental and behavioral disorders
CPT/HCPCS: 36415; 80048; 80053; 80061; 80306; 80320; 81001; 83036; 84443; 85025; 96361; 96372; 96374; 99285

== ENCOUNTER 2021-06-16 14:30 | Emergency (ER) | payer OTHER ==
[2021-06-16] MEDS ORDERED: LORazepam 2 MG/ML INJ IM STA (15:06)
[2021-06-16] MEDS ORDERED: ZIPRASIDONE 20 MG VIAL IM STA (15:06)
--- NOTE | 2021-06-16 15:45 | ED ---
General Adult HPI - General Chief complaint: Psychiatric Symptoms Stated complaint: Petition Time Seen by Provider: 06/16/21 14:30 Source: patient, family, police, EMS, RN notes reviewed, old records reviewed Mode of arrival: EMS Limitations: altered mental status - History of Present Illness Initial comments: This is a 31-year-old male who was brought in by police and his petition by sister who is also a social scientist. Patient has a history of schizophrenia and refuses to take any medication. Recently his girlfriend broke up with him and it seemed to exacerbate his condition. Patient has been hallucinating talking about suicide and hearing voices and seeing things other people aren't. Patient is very agitated he does not want to be in the emergency department. Family is needed to keep him calm. Patient denies needing to be here but he won't answer specific questions about being suicidal or hearing or seeing things. Patient has no physical complaints today. - Related Data Home Medications Medication Instructions Recorded Confirmed Unable To Assess [Unable to Assess] 06/16/21 06/16/21 Allergies Allergy/AdvReac Type Severity Reaction Status Date / Time No Known Allergies Allergy Verified 06/16/21 16:06 Review of Systems ROS Statement: Those systems with pertinent positive or pertinent negative responses have been documented in the HPI. ROS Other: All systems not noted in ROS Statement are negative. Past Medical History Past Medical History: No Reported History History of Any Multi-Drug Resistant Organisms: None Reported Past Surgical History: No Surgical Hx Reported Past Anesthesia/Blood Transfusion Reactions: No Reported Reaction Past Psychological History: No Psychological Hx Reported Smoking Status: Former smoker Past Alcohol Use History: Occasional Past Drug Use History: None Reported - Past Family History Mother Additional Family Medical History / Comment(s): Mental Illness Father History Unknown: Yes General Exam - General Exam Comments Initial Comments: GENERAL: Patient is well-developed and well-nourished. Patient is nontoxic and well- hydrated and is in no acute distress ENT: Neck is soft and supple. No significant lymphadenopathy is noted. Oropharynx is clear. Moist mucous membranes. Neck has full range of motion without eliciting any pain. EYES: The sclera were anicteric and conjunctiva were pink and moist. Extraocular movements were intact and pupils were equal round and reactive to light. Eyelids were unremarkable. PULMONARY: Unlabored respirations. Good breath sounds bilaterally. No audible rales rhonchi or wheezing was noted. CARDIOVASCULAR: There is a regular rate and rhythm without any murmurs gallops or rubs. ABDOMEN: Soft and nontender with normal bowel sounds. SKIN: Skin is clear with no lesions or rashes and otherwise unremarkable. NEUROLOGIC: Patient is alert and oriented x3. Cranial nerves II through XII are grossly intact. Motor and sensory are also intact. Normal speech, volume and content. Symmetrical smile. MUSCULOSKELETAL: Normal extremities with adequate strength and full range of motion. LYMPHATICS: No significant lymphadenopathy is noted PSYCHIATRIC: Patient is very agitated has pressured speech and is having a difficult time completing thoughts. Patient will not answer any questions suicidal ideations or if he previously made suicidal comments. Limitations: altered mental status Course Vital Signs 06/16/21 15:00 Temperature 99.1 F Pulse Rate 117 H Respiratory 22 Rate Blood Pressure 139/79 O2 Sat by Pulse 99 Oximetry Medical Decision Making - Medical Decision Making EPS evaluated the patient and determined the patient needed to be admitted patient will be transferred to a [facility] facility - Lab Data Result diagrams: 06/16/21 18:12 06/16/21 18:12 Lab Results 06/16/21 06/16/21 Range/Units 18:12 18:12 WBC 7.2 (3.8-10.6) k/uL RBC 4.71 (4.30-5.90) m/uL Hgb 13.8 (13.0-17.5) gm/dL Hct 41.8 (39.0-53.0) % MCV 88.7 (80.0-100.0) fL MCH 29.3 (25.0-35.0) pg MCHC 33.0 (31.0-37.0) g/dL RDW 12.9 (11.5-15.5) % Plt Count 233 (150-450) k/uL MPV 6.7 Neutrophils % 65 % Lymphocytes % 26 % Monocytes % 6 % Eosinophils % 1 % Basophils % 1 % Neutrophils # 4.7 (1.3-7.7) k/uL Lymphocytes # 1.9 (1.0-4.8) k/uL Monocytes # 0.4 (0-1.0) k/uL Eosinophils # 0.1 (0-0.7) k/uL Basophils # 0.1 (0-0.2) k/uL Sodium 139 (137-145) mmol/L Potassium 3.5 (3.5-5.1) mmol/L Chloride 104 (98-107) mmol/L Carbon Dioxide 28 (22-30) mmol/L Anion Gap 7 mmol/L BUN 14 (9-20) mg/dL Creatinine 0.92 (0.66-1.25) mg/dL Est GFR (CKD-EPI)AfAm >90 (>60 ml/min/1.73 sqM) Est GFR (CKD-EPI)NonAf >90 (>60 ml/min/1.73 sqM) Glucose 73 L (74-99) mg/dL Calcium 9.1 (8.4-10.2) mg/dL Total Bilirubin 0.9 (0.2-1.3) mg/dL AST 95 H (17-59) U/L ALT 51 H (4-49) U/L Alkaline Phosphatase 43 (38-126) U/L Total Protein 6.6 (6.3-8.2) g/dL Albumin 4.1 (3.5-5.0) g/dL Disposition Clinical Impression: Acute psychosis Disposition: TRANSFER TO PSYCH HOSP/UNIT Referrals: None,Stated [Primary Care Provider] - 1-2 days Time of Disposition: 19:16
[2021-06-16 18:50] LABS: Basophils # (A) 0.1 k/uL (0-0.2); Basophils % (A) 1 %; Eosinophils # (A) 0.1 k/uL (0-0.7); Eosinophils % (A) 1 %; HCT 41.8 % (39.0-53.0); HGB 13.8 gm/dL (13.0-17.5); Lymphocytes # (A) 1.9 k/uL (1.0-4.8); Lymphocytes % (A) 26 %; MCH 29.3 pg (25.0-35.0); MCV 88.7 fL (80.0-100.0); Mean Platelet Volume 6.7; Monocytes # (A) 0.4 k/uL (0-1.0); Monocytes % (A) 6 %; Neutrophils # (A) 4.7 k/uL (1.3-7.7); Neutrophils % (A) 65 %; Platelet Count 233 k/uL (150-450); RBC 4.71 m/uL (4.30-5.90); RDW 12.9 % (11.5-15.5); WBC 7.2 k/uL (3.8-10.6)
[2021-06-16 19:00] LABS: ALT 51 U/L (4-49); AST 95 U/L (17-59); African American GFR (CKD) >90 (>60 ml/min/1.73 sqM); Albumin 4.1 g/dL (3.5-5.0); Alkaline Phosphatase 43 U/L (38-126); Anion Gap 7 mmol/L; Blood Urea Nitrogen 14 mg/dL (9-20); Calcium 9.1 mg/dL (8.4-10.2); Carbon Dioxide 28 mmol/L (22-30); Chloride 104 mmol/L (98-107); Glucose 73 mg/dL (74-99); Non-African American GFR(CKD) >90 (>60 ml/min/1.73 sqM); Potassium 3.5 mmol/L (3.5-5.1); Sodium 139 mmol/L (137-145); Total Bilirubin 0.9 mg/dL (0.2-1.3); Total Protein 6.6 g/dL (6.3-8.2)
[2021-06-16 20:25] VITALS: TEMP 97.9
[2021-06-16] MEDS ORDERED: LORazepam 1 MG TAB PO STA (21:05)
[2021-06-16 21:24] LABS: Appearance,Urine Clear (Clear); Bilirubin,Urine Negative (Negative); Blood,Urine Negative (Negative); Color,Urine Yellow; Glucose,Urine (UA) Negative (Negative); Ketones,Urine 1+ (Negative); Leukocyte Esterase,Urine Negative (Negative); Mucus,Urine Many /hpf; Nitrite,Urine Negative (Negative); Protein,Urine 1+ (Negative); RBC,Urine 3 /hpf (0-5); Specific Gravity,Urine 1.029 (1.001-1.035); WBC,Urine 6 /hpf (0-5)
[2021-06-16 21:36] LABS: Amphetamine Screen,Urine Not Detected (NotDetected); Barbiturate Screen,Urine Not Detected (NotDetected); Benzodiazepines Screen,Urine Not Detected (NotDetected); Cocaine Screen,Urine Not Detected (NotDetected); Methadone Screen, Urine Not Detected (NotDetected); Opiate Screen,Urine Not Detected (NotDetected); Oxycodone Screen, Urine Not Detected (NotDetected); Phencyclidine Screen,Urine Not Detected (NotDetected); Tricyclic Antidepressant,Urine Not Detected (NotDetected); Urn Cannabinoid Scrn Detected (NotDetected)
[2021-06-17 04:48] VITALS: RESP 18
[2021-06-17 11:21] VITALS: BP 129/78; PULSE 93
== END 2021-06-17 18:45 ==
LOC: EC 14:30
DX: F23 Brief psychotic disorder (principal); Z87.891 Personal history of nicotine dependence
CPT/HCPCS: 82075; 36415; 80053; 85025; 81001; 80306; 87635; 99285; 96372; J2060; J3486